=== PATIENT | female | born 1955 | race Caucasian/White ===

== ENCOUNTER 2016-07-24 18:51 | Inpatient (IN) | payer MEDICAID ==
[~2016-07-24] VITALS: Ht 157.5 cm; Wt 70.1 kg
--- NOTE | ~2016-07-24 | CON ---
[facility] 61 Y [address] ROOM: [place] [address] LOCATION: GPCU ADMIT DATE: 07/24/2016 Consultation DISCHARGE DATE: FAMILY PHYSICIAN: PHYSICIAN, UNKNOWN ATTENDING PHYSICIAN: KATE BABIN DATE OF CONSULTATION: 07/24/2016 REFERRING PHYSICIAN: Quinn Reddy MD REFERRING PHYSICIANS: Dr. Babin and Dr. Wilcox. REASON FOR CONSULTATION: Rectal bleeding. HISTORY OF PRESENT ILLNESS: The patient is a pleasant 61-year-old white female with a history of CVA and has significant restrictions in speech. She was transferred from [facility] for evaluation of lower GI bleeding. She apparently developed acute hematochezia. She was admitted for further management. CT scan did show some thickening of the colon, suggestive of colitis. The patient denies any abdominal pain. She denies any prior history of similar problems. She is not a good historian, but says she has never had a colonoscopy done. PAST MEDICAL HISTORY: Significant for nontraumatic subarachnoid hemorrhage. She had clipping done, developed a CVA, and has been on anticoagulation since then. Has a history of urinary tract infection. History of seizures. Has cellulitis in the past. Hyperlipidemia. She has a history of GERD. Anxiety disorder. Again, a very limited history is available. PAST SURGICAL HISTORY: MCA clipping. She has also an IVC filter placed. Family history and other medical history are not reliably available. ALLERGIES: NO KNOWN DRUG ALLERGIES. CURRENT MEDICATIONS: Include: 1. Amantadine. 2. Eliquis. 3. Biofreeze. 4. Clonidine. PATIENT'S NAME: [facility] AGE: 61 Y [address] ROOM: [address] [place] [id number] LOCATION: GPCU ADMIT DATE: 07/24/2016 Consultation DISCHARGE DATE: FAMILY PHYSICIAN: PHYSICIAN, UNKNOWN ATTENDING PHYSICIAN: KATE BABIN 5. Ipratropium. 6. Albuterol sulfate inhaler. 7. Ferrous sulfate. 8. Cyclobenzaprine. 9. Keppra. 10. Citalopram. 11. Atorvastatin. 12. Magnesium hydroxide. 13. MiraLax powder p.r.n. 14. Naproxen. 15. Famotidine. 16. Methylphenidate. 17. Guaifenesin. 18. Senna. 19. Sinemet. 20. Symbicort inhaler. 21. Acetaminophen. 22. Ascorbic acid. 23. Cholecalciferol. REVIEW OF SYSTEMS: Very limited review of system is available. Most information is gleaned from the chart. Unremarkable other than what is mentioned in the Past Medical History and History of Present Illness. PHYSICAL EXAMINATION: GENERAL: Today, she is communicative, but slow to respond, does have some significant speech disorder because of the CVA. VITAL SIGNS: Temperature is 97, pulse is 92 per minute, blood pressure is 172/93, respiratory rate is 20. CHEST: Good air entry bilaterally. She does have a scar from a tracheostomy probably. ABDOMEN: Soft. There is a scar from her old PEG tube. Soft, Nontender. Rest of the exam is extremely limited. LABORATORY DATA: Her labs show procalcitonin of 0.07, sodium 144, potassium 4.0, chloride is 114, bicarb is 20, BUN 12, creatinine 0.3, albumin is 1.8, total bilirubin is 0.2, ALT of 17, AST is 18, alk phos 71, magnesium is 1.7. CBC showed WBC of 9.0, hemoglobin of 8.5, hematocrit 28.6, platelet count of 253. She has had 4 L of fluid for resuscitation. IMPRESSION: PATIENT'S NAME: AVIS FOY [facility] AGE: 61 Y [address] ROOM: [place] [address] LOCATION: [facility] ADMIT DATE: 07/24/2016 Consultation DISCHARGE DATE: FAMILY PHYSICIAN: PHYSICIAN, UNKNOWN ATTENDING PHYSICIAN: KATE BABIN The patient with a history of lower gastrointestinal bleeding. CT scan does suggest some changes of colitis. At this time, she is relatively hemodynamically stable. I would suggest to continue the conservative management. We will watch her hemoglobin. She may be transfused blood prn. The patient will be scheduled for colonoscopy. We will continue to follow this patient along with you. Thank you once again for the courtesy of this consultation. ARIMD FEMI JENNINGS/modl /[id number] d: 07/25/16 0234 t: 07/26/16 1554, CONSULTATION REPORT
--- NOTE | ~2016-07-24 | HP ---
PATIENT'S NAME: SHANNA FOYERIE [facility] AGE: 61 Y [address] ROOM: [place] [address] LOCATION: GPCU ADMIT DATE: 07/24/2016 History & Physical DISCHARGE DATE: FAMILY PHYSICIAN: PHYSICIAN, UNKNOWN ATTENDING PHYSICIAN: KATE BABIN DATE OF SERVICE: CHIEF COMPLAINT: For this admission, bright red blood per rectum. 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 The patient is also on anticoagulation supposedly for a DVT with apixaban. The patient developed bright red blood per rectum and some right-sided abdominal discomfort earlier today. She was evaluated at an outside facility where hemoglobin was observed to be 11. A CAT scan of abdomen and pelvis demonstrated mild rectosigmoid colitis, diverticulosis, and a dense right lower lobe infiltrate. I also appreciate a considerable right-sided constipation. REVIEW OF SYSTEMS: The patient denies any chest pain, shortness of breath, nausea, vomiting, or palpitations. On review of systems, all systems have been reviewed and negative aside pertinent positives mentioned above. PAST MEDICAL HISTORY: 1. Left hemiparesis. 2. Middle cerebral artery aneurysm, status post clipping. 3. History of DVT. 4. Status post IVC filter. 5. Drowsiness/altered level of consciousness, currently on medication regimen with amantadine and Ritalin. 6. Hypertension. SURGICAL HISTORY: As above. SOCIAL HISTORY: Reviewed and the patient has no ongoing toxic habits. FAMILY HISTORY: [facility]GE[facility] 61 Y [address] ROOM: [id number] [place], [place] [address] LOCATION: GPCU ADMIT DATE: 07/24/2016 History & Physical DISCHARGE DATE: FAMILY PHYSICIAN: PHYSICIAN, UNKNOWN ATTENDING PHYSICIAN: KATE BABIN Reviewed and is noncontributory due to known underlying etiology to her presentation. CURRENT MEDICATIONS: 1. Apixaban. 2. Amantadine. 3. Biofreeze as needed. 4. DuoNeb. 5. Ferrous sulfate. 6. Flexeril. 7. Lexapro. 8. Milk of magnesia. 9. MiraLAX. 10. Naprosyn. 11. Pepcid. 12. Ritalin. 13. Robitussin. 14. Sinemet. 15. Symbicort. 16. Tylenol. 17. Vitamin C. 18. Vitamin D. PHYSICAL EXAMINATION: VITAL SIGNS: Blood pressure 170/80, heart rate is in the 90s, saturating 96% on 2 L nasal cannula, respirations 16, and she is afebrile. GENERAL: Appears chronically ill, elderly female, in no acute distress. NEUROLOGIC: Significant for some expressive aphasia as well as dysarthria with left-sided hemiparesis. HEENT: Eye exam shows pupils are equal and reactive to light. LYMPHATIC: No cervical lymphadenopathy. ENDOCRINE: No thyromegaly. LUNGS: Significant for crackles at the left base and diminished breath sounds on the right. HEART: Regular rate and rhythm without appreciable murmurs, gallops, or rubs. There is no lower extremity edema. GI: Abdomen is soft, slightly tender to the right upper quadrant. Normoactive bowel sounds. No rebound tenderness or guarding. : No costovertebral angle tenderness. VASCULAR: 2+ pedal pulses. MUSCULOSKELETAL: No muscle or joint abnormalities. PSYCHIATRIC: Appropriate mood, cognition, and affect. SKIN: Warm and dry. LABORATORY DATA: Studies that are available so far, hemoglobin of 8.5 done here which down from PATIENT'S NAME: AVIS FOY [facility] AGE: 61 Y [address] ROOM: [place] [address] [facility] ADMIT DATE: 07/24/2016 History & Physical DISCHARGE DATE: FAMILY PHYSICIAN: PHYSICIAN, UNKNOWN ATTENDING PHYSICIAN: KATE BABIN 9.3 at the outside hospital. White count is 9.0, platelets of 253, INR is 1.2. A CAT scan as above. ASSESSMENT AND PLAN: This is a 61-year-old female who is being admitted with: 1. Acute blood loss anemia due to gastrointestinal bleed. We will continue trending the patient's hemoglobin. I believe at this point her considerable drop is related to ongoing dilution as she has received 2 L of fluids at the outside facility. We will put her on Protonix and get a GI consultation. Most likely, this is evidence of an ischemic colitis. We will also hold off on her anticoagulation. If hemorrhage continues, we will consider reversing her apixaban though at this point, I believe we will keep monitor her and transfuse as needed. 2. Lower gastrointestinal bleed. This is likely due to ischemic colitis. We will aggressively hydrate the patient. We will get a GI consultation. 3. Pneumonia, likely due to aspiration. The patient has received broad- spectrum coverage with Flagyl, Rocephin, and meropenem at the outside facility. We will continue her on Flagyl and Rocephin, which will cover pneumonia as well as colitis. We will get a Speech and Swallow eval as the patient does admit to occasional choking on food despite being on a pureed diet. 4. History of deep venous thrombosis. The patient does have an IVC filter. 5. Essential hypertension. We will continue the patient on clonidine. 6. DVT prophylaxis will be non-pharmacologic for the time being as the patient is at this point fully anticoagulated. 7. Suspected Parkinson's based on her med regimen. We will continue her on her current medications. 8. Additional management will depend on clinical course. Time dedicated to this patient's encounter is 35 minutes. MD TESFAYE FRANCO/pat /[id number] D: 027 T: HISTORY & PHYSICAL
--- NOTE | ~2016-07-24 | DS ---
PATIENT'S NAME: AVIS FOY [facility] AGE: 61 Y [address] ROOM: [address] [address] LOCATION: GPCU ADMIT DATE: 07/24/2016 Discharge Summary DISCHARGE DATE: 07/29/2016 FAMILY PHYSICIAN: Physician, Unknown ATTENDING PHYSICIAN: Harjit Vivar DISCHARGE DIAGNOSES: 1. Lower gastrointestinal bleed. 2. Acute hypoxic respiratory failure. 3. Aspiration pneumonia. 4. Hypokalemia. 5. Anemia secondary to lower gastrointestinal bleed. 6. History of intracerebral hemorrhage with secondary left hemiplegia. PROCEDURES: Lower GI endoscopy REASON FOR ADMISSION: The patient was hypoxic and bleeding from the rectum. LABORATORY DATA: Hematology shows normal white count and platelets. Her hemoglobin is 8.8, which is fairly stable, she was up to a max of 9.4. No active bleeding at this time. Chemistries: Potassium down at 3.4. Albumin is low and calcium secondarily decreased. Liver function tests are all normal. GFR greater than 60. X-ray yesterday showed pneumonia persists. She has lower lung opacity, most prominent in the right base, unchanged from her first x-ray here. Abdominal film is normal except does show an IVC in place. HOSPITAL COURSE: Her oxygenation improved, still has somewhat of a tight cough, but her lungs are more clear. She is intermittently a little moist on auscultation, but improving. Note that during the hospitalization, lower GI endoscopy was abandoned because of the poor prep. We do not have a focus of bleeding. The decision has been made to keep her off long-term anticoagulation since she has a filter in the vena cava that may or may not be what she needs extermination inspector, but that decision will be left to her primary doctor. She will be discharged on medications per nursing med recon. I will just leave her on a high dose of amoxicillin for another week as the chest x-ray is still showing pneumonia. We will leave her on respiratory treatments. Diet will be pureed food and thickened liquids as she has history of an abnormal swallowing test. Activity will be per PT and her caregivers. She was unable to walk at this time. Followup will be scheduled with her primary care doctor in 2 weeks. PATIENT'S NAME: AVIS FOY [facility] AGE: 61 Y [address] ROOM: [id number] [place], [place] [address] LOCATION: GPCU ADMIT DATE: 07/24/2016 Discharge Summary DISCHARGE DATE: 07/29/2016 FAMILY PHYSICIAN: Jessie Gunter ATTENDING PHYSICIAN: Harjit Vivar Note that discharge preparations took 35 minutes this morning. MD ELIZABET WARNER/modl /[id number] d: 07/30/16 0306 t: 07/30/16 1525, DISCHARGE SUMMARY
[2016-07-24 20:22] LABS: BASOPHIL % 0.2 %; EOSINOPHIL # 0.5 K/uL (0.0-0.5); EOSINOPHIL % 5.7 %; HEMATOCRIT 28.6 % (33.0-46.0); HEMOGLOBIN 8.5 g/dL (10.0-15.0); IMMATURE GRANULOCYTE # 0.1 K/uL (0.0-0.3); IMMATURE GRANULOCYTE % 0.8 %; LYMPHOCYTE # 1.2 K/uL (0.8-4.0); LYMPHOCYTE % 12.8 %; MCH 25.6 pg (27.0-34.0); MCHC 29.7 gm/dL (32.0-36.5); MCV 86.1 fl (83.0-98.0); MONOCYTE # 0.4 K/uL (0.0-1.0); MONOCYTE % 4.2 %; NEUTROPHIL # (ANC) 6.9 K/uL (1.8-7.8); NEUTROPHIL % 76.3 %; NRBC % 0 /100WBC (0-0.00); PLATELET COUNT 253 K/uL (150-450); RBC 3.32 M/uL (3.50-5.50); RDW-CV 15.7 % (11.9-14.6)
[2016-07-24 20:27] LABS: INR - (THERAPEUTIC) 1.2 (0.9-1.1)
[2016-07-24 20:43] LABS: ALK PHOS 71 IU/L (33-138); ALT 17 IU/L (12-78); AST 18 IU/L (10-40); BLOOD UREA NITROGEN 12 mg/dL (6-24); CHLORIDE 114 mMol/L (96-110); CO2 20 mMol/L (22-32); CREATININE 0.3 mg/dL (0.5-1.1); ESTIMATED GFR (MDRD EQUATION) > 60; MAGNESIUM 1.7 mg/dL (1.3-2.6); SODIUM 144 mMol/L (135-145); TOTAL BILIRUBIN 0.2 mg/dL (0.0-1.5)
[2016-07-24 20:53] LABS: ALBUMIN 1.8 gm/dL (3.5-5.0); CALCIUM 6.7 mg/dL (8.5-10.5); TOTAL PROTEIN 4.7 g/dL (6.0-8.4)
[2016-07-24] MEDS ORDERED: SYMMETREL 100M100 MG PO (21:47)
[2016-07-24] MEDS ORDERED: ELIQUIS5 MG PO (21:48)
[2016-07-24] MEDS ORDERED: CATAPRES0.1 MG PO (21:53)
[2016-07-24] MEDS ORDERED: BIOFREEZE89 ML TOP (21:53)
[2016-07-24] MEDS ORDERED: FEOSOL325 MG PO (21:55)
[2016-07-24] MEDS ORDERED: DUONEB INH (21:55)
[2016-07-24] MEDS ORDERED: FLEXERIL10 MG PO (21:56)
[2016-07-24] MEDS ORDERED: KEPPRA500 MG PO (21:58)
[2016-07-24] MEDS ORDERED: LEXAPRO20 MG PO (21:59)
[2016-07-24] MEDS ORDERED: LIPITOR40 MG PO (22:00)
[2016-07-24] MEDS ORDERED: MILK OF MA400 MG/5 M PO (22:00)
[2016-07-24] MEDS ORDERED: MIRALAX17 GM PO (22:01)
[2016-07-24] MEDS ORDERED: PEPCID20 MG PO (22:02)
[2016-07-24] MEDS ORDERED: NAPROSYN500 MG PO (22:02)
[2016-07-24] MEDS ORDERED: RITALIN 10MG10 MG PO (22:05)
[2016-07-24] MEDS ORDERED: RITALIN 5MG5 MG PO (22:07)
[2016-07-24] MEDS ORDERED: ROBITUSSIN100 MG/5 M PO (22:09)
[2016-07-24] MEDS ORDERED: SENNA8.6 MG PO (22:10)
[2016-07-24] MEDS ORDERED: SINEMET 25-1001 EACH PO (22:19)
[2016-07-24] MEDS ORDERED: SYMBICORT 16010.2 GM INH (22:20)
[2016-07-24] MEDS ORDERED: TYLENOL325 MG PO (22:21)
[2016-07-24] MEDS ORDERED: VITAMIN C250 MG PO (22:23)
[2016-07-24] MEDS ORDERED: VITAMIN D1000 UNIT PO (22:23)
--- NOTE | 2016-07-25 04:41 | NUR ---
Significant Event: Arrived to floor and during transfer had large BM full of bloody stool and significant clots. CT showed possible colitis and ischemic bowels. Follow up: A&Ox2. Pt has hx of CVA with aphasia and flaccidity on L side. Pt currently NPO with [facility] [employer] consult in. Do not give any PO meds. Currently no VTE ordered. GI consult in and Dr. Reddy has seen. Currently getting CBC q8h. 2 units of PRBC on hold in blood bank if needed. Did receive 4L bolus of fluids prior to arrival in ED. Continue IVF of NS @ 100.
[2016-07-25 04:55] LABS: BASOPHIL % 0.2 %; EOSINOPHIL # 0.5 K/uL (0.0-0.5); EOSINOPHIL % 3.9 %; HEMATOCRIT 29.4 % (33.0-46.0); HEMOGLOBIN 8.7 g/dL (10.0-15.0); IMMATURE GRANULOCYTE # 0.1 K/uL (0.0-0.3); IMMATURE GRANULOCYTE % 0.4 %; LYMPHOCYTE % 8.2 %; MCH 25.3 pg (27.0-34.0); MCHC 29.6 gm/dL (32.0-36.5); MCV 85.5 fl (83.0-98.0); MONOCYTE # 0.7 K/uL (0.0-1.0); MONOCYTE % 5.5 %; MPV 11.2 fl (9.4-12.4); NEUTROPHIL # (ANC) 10.4 K/uL (1.8-7.8); NEUTROPHIL % 81.8 %; NRBC % 0 /100WBC (0-0.00); PLATELET COUNT 255 K/uL (150-450); RBC 3.44 M/uL (3.50-5.50); RDW-CV 15.6 % (11.9-14.6); WBC 12.7 K/uL (4.0-11.0)
[2016-07-25 11:45] LABS: BASOPHIL % 0.2 %; EOSINOPHIL # 0.6 K/uL (0.0-0.5); EOSINOPHIL % 5.2 %; HEMATOCRIT 27.7 % (33.0-46.0); HEMOGLOBIN 8.5 g/dL (10.0-15.0); IMMATURE GRANULOCYTE # 0.1 K/uL (0.0-0.3); IMMATURE GRANULOCYTE % 0.6 %; LYMPHOCYTE # 1.1 K/uL (0.8-4.0); LYMPHOCYTE % 10.4 %; MCH 25.8 pg (27.0-34.0); MCHC 30.7 gm/dL (32.0-36.5); MCV 83.9 fl (83.0-98.0); MONOCYTE # 0.7 K/uL (0.0-1.0); MPV 10.6 fl (9.4-12.4); NEUTROPHIL # (ANC) 8.4 K/uL (1.8-7.8); NEUTROPHIL % 77.6 %; NRBC % 0 /100WBC (0-0.00); PLATELET COUNT 246 K/uL (150-450); RDW-CV 15.5 % (11.9-14.6); WBC 10.8 K/uL (4.0-11.0)
--- NOTE | 2016-07-25 15:19 | NUR ---
Significant Event: Alert and disorieted to place at times. L) side flaccid with facial droop from old CVA. L) AFA infusing NS at 100ml/hr. SBP-89-130. P-80-90s. Afebrile. 1-2L NC with saturations in low to mid 90s. Speech evaled patient and recommended puree diet, nectar thick liquids, and pills crushed with apple sauce. Patient is clear liquids after 1800 and NPO at 0400 tomorrow morning for sigmoidoscopy tomorrow in the AM. Total lift with Q2hr Turns. Incontinent of urine/stool. No bloody BM this shift. Last HBG 8.5, next to be drawn at 2000.
[2016-07-25 20:19] LABS: BASOPHIL % 0.3 %; EOSINOPHIL # 0.6 K/uL (0.0-0.5); EOSINOPHIL % 5.4 %; HEMATOCRIT 26.9 % (33.0-46.0); HEMOGLOBIN 8.2 g/dL (10.0-15.0); IMMATURE GRANULOCYTE % 0.4 %; LYMPHOCYTE # 1.1 K/uL (0.8-4.0); LYMPHOCYTE % 9.8 %; MCH 25.7 pg (27.0-34.0); MCHC 30.5 gm/dL (32.0-36.5); MCV 84.3 fl (83.0-98.0); MONOCYTE # 0.6 K/uL (0.0-1.0); MONOCYTE % 5.2 %; MPV 11.3 fl (9.4-12.4); NEUTROPHIL # (ANC) 8.9 K/uL (1.8-7.8); NEUTROPHIL % 78.9 %; NRBC % 0 /100WBC (0-0.00); PLATELET COUNT 268 K/uL (150-450); RBC 3.19 M/uL (3.50-5.50); RDW-CV 15.5 % (11.9-14.6); WBC 11.3 K/uL (4.0-11.0)
[2016-07-26 04:10] LABS: BASOPHIL % 0.3 %; EOSINOPHIL # 0.7 K/uL (0.0-0.5); EOSINOPHIL % 6.4 %; HEMATOCRIT 26.8 % (33.0-46.0); HEMOGLOBIN 8.2 g/dL (10.0-15.0); IMMATURE GRANULOCYTE % 0.3 %; LYMPHOCYTE # 1.4 K/uL (0.8-4.0); LYMPHOCYTE % 13.5 %; MCH 25.9 pg (27.0-34.0); MCHC 30.6 gm/dL (32.0-36.5); MCV 84.5 fl (83.0-98.0); MONOCYTE # 0.6 K/uL (0.0-1.0); MPV 11.1 fl (9.4-12.4); NEUTROPHIL # (ANC) 7.5 K/uL (1.8-7.8); NEUTROPHIL % 73.5 %; NRBC % 0 /100WBC (0-0.00); PLATELET COUNT 266 K/uL (150-450); RBC 3.17 M/uL (3.50-5.50); RDW-CV 15.6 % (11.9-14.6); WBC 10.3 K/uL (4.0-11.0)
[2016-07-26 04:27] LABS: ALK PHOS 75 IU/L (33-138); ANION GAP 12.2 (10.0-19.0); AST 18 IU/L (10-40); CALCIUM 7.9 mg/dL (8.5-10.5); CHLORIDE 109 mMol/L (96-110); CO2 23 mMol/L (22-32); CREATININE 0.3 mg/dL (0.5-1.1); ESTIMATED GFR (MDRD EQUATION) > 60; POTASSIUM 3.2 mMol/L (3.7-5.1); SODIUM 141 mMol/L (135-145); TOTAL PROTEIN 5.3 g/dL (6.0-8.4)
[2016-07-26 04:28] LABS: ALBUMIN 1.9 gm/dL (3.5-5.0); ALT < 10 IU/L (12-78); BLOOD UREA NITROGEN 3 mg/dL (6-24); TOTAL BILIRUBIN 0.4 mg/dL (0.0-1.5)
--- NOTE | 2016-07-26 05:08 | NUR ---
Significant event: Patient alert to self and time but forgetful to place. left side is flaccid from old cva. Speech is slow and garbeled. Turn every 2 hours and as needed. Inc of bladder. No stools duirng shift. Plan to have a flex sigmoidoscopy this am, npo since 0400. Tap water enema's this morning at 7 and 8. Takes pills crushed in pudding.
--- NOTE | 2016-07-26 11:01 | NUR ---
D:Patient had tap water enema at 0700. Patient isn't able to retain much fluid. Return was clear to red tinged. Repeated enema at 0800, return was darker red and there was 6 small clots that returned with. Did give approx. 150-200 ml water with each enema and unable to retain any of it.
--- NOTE | 2016-07-26 11:06 | NUR ---
D:Patient left per cart for Endo at 0930.
[2016-07-26 12:18] LABS: BASOPHIL % 0.2 %; EOSINOPHIL # 0.6 K/uL (0.0-0.5); EOSINOPHIL % 3.4 %; HEMATOCRIT 28.5 % (33.0-46.0); HEMOGLOBIN 8.7 g/dL (10.0-15.0); IMMATURE GRANULOCYTE # 0.1 K/uL (0.0-0.3); IMMATURE GRANULOCYTE % 0.5 %; LYMPHOCYTE # 1.2 K/uL (0.8-4.0); LYMPHOCYTE % 6.6 %; MCH 25.9 pg (27.0-34.0); MCHC 30.5 gm/dL (32.0-36.5); MCV 84.8 fl (83.0-98.0); MONOCYTE # 0.8 K/uL (0.0-1.0); MONOCYTE % 4.3 %; MPV 10.9 fl (9.4-12.4); NEUTROPHIL # (ANC) 14.8 K/uL (1.8-7.8); NRBC % 0 /100WBC (0-0.00); PLATELET COUNT 280 K/uL (150-450); RBC 3.36 M/uL (3.50-5.50); RDW-CV 15.6 % (11.9-14.6)
[2016-07-26 12:20] LABS: WBC 17.4 K/uL (4.0-11.0)
--- NOTE | 2016-07-26 15:50 | NUR ---
D:Patient returned from PACU per cart at 1120. They were unable to flexible sigmoidoscopy d/t stool and clots in the way. The enemas didn't do a good prep. Orders given for PO laxatives today. Patient is alert, no changes noted to assessment.
--- NOTE | 2016-07-26 17:31 | NUR ---
Significant Event:Patient was to have flexible sigmoidoscopy this am, had two enemas, unable to retain any water. Unable to do scope. Patient had 6 Dulcolax and a bottle of mag citrate when back to floor. Has been incont of large amounts of urine. Small stools twice. Patient on clear liquids thickened. Has moist cough. Started on Mucinex today, Got KCl 40 mEq IV and 2 gm Mg IV. Also got SoluMedrol today. Hgb at 1240 today 8.7, has been holding that range. Follow up:Colonoscopy tomorrow, and needs enema at 0600.
[2016-07-26 19:40] LABS: HEMATOCRIT 29.8 % (33.0-46.0); HEMOGLOBIN 9.2 g/dL (10.0-15.0); MCH 25.5 pg (27.0-34.0); MCHC 30.9 gm/dL (32.0-36.5); MCV 82.5 fl (83.0-98.0); MPV 11.7 fl (9.4-12.4); PLATELET COUNT 287 K/uL (150-450); RBC 3.61 M/uL (3.50-5.50); RDW-CV 15.5 % (11.9-14.6); WBC 12.5 K/uL (4.0-11.0)
[2016-07-26 20:46] LABS: BANDED NEUTROPHIL # 0.1 K/uL (0.0-0.1); BANDED NEUTROPHILS % 1 %; LYMPHOCYTE # 0.4 K/uL (0.8-4.0); LYMPHOCYTE % 3 %; MONOCYTE # 0.1 K/uL (0.0-1.0); SEGMENTED NEUTROPHIL # 11.9 K/uL (1.8-7.8); SEGMENTED NEUTROPHIL % 95 %
[2016-07-27 04:06] LABS: BASOPHIL % 0.1 %; HEMATOCRIT 28.5 % (33.0-46.0); HEMOGLOBIN 8.7 g/dL (10.0-15.0); IMMATURE GRANULOCYTE % 0.5 %; LYMPHOCYTE # 0.7 K/uL (0.8-4.0); LYMPHOCYTE % 8.9 %; MCH 25.3 pg (27.0-34.0); MCHC 30.5 gm/dL (32.0-36.5); MCV 82.8 fl (83.0-98.0); MONOCYTE # 0.2 K/uL (0.0-1.0); MPV 11.5 fl (9.4-12.4); NEUTROPHIL # (ANC) 6.8 K/uL (1.8-7.8); NEUTROPHIL % 87.5 %; NRBC % 0 /100WBC (0-0.00); PLATELET COUNT 284 K/uL (150-450); RBC 3.44 M/uL (3.50-5.50); RDW-CV 15.8 % (11.9-14.6); WBC 7.8 K/uL (4.0-11.0)
[2016-07-27 04:27] LABS: ANION GAP 12.8 (10.0-19.0); BLOOD UREA NITROGEN 3 mg/dL (6-24); CALCIUM 7.8 mg/dL (8.5-10.5); CHLORIDE 105 mMol/L (96-110); CO2 23 mMol/L (22-32); CREATININE 0.3 mg/dL (0.5-1.1); ESTIMATED GFR (MDRD EQUATION) > 60; MAGNESIUM 2.4 mg/dL (1.3-2.6); POTASSIUM 3.8 mMol/L (3.7-5.1); SODIUM 137 mMol/L (135-145)
[2016-07-27 04:33] LABS: PHOSPHORUS 1.6 mg/dL (2.5-4.9)
--- NOTE | 2016-07-27 04:59 | NUR ---
Significant Event: DISORIENTED TO PLACE. FORGETFUL. ANSWERS YES OR NO TO QUESTIONS. TURNED Q 2 HRS SIDE TO SIDE WITH WEDGE. AFEBRILE. VSS ON 1L. DENIES PAIN. IV TO R) FA WITH NS @ 50 ML/H. NPO SINCE MIDNIGHT FOR COLONOSCOPY THIS AM. PERMITS NEED SIGNED. CALLED AND LEFT VOICEMAIL BUT NO CALL BACK. INCONTINENT OF BLADDER AND BOWEL.HAD ONE LARGE BM THIS SHIFT. ENEMA AT 0600. Follow up: CONTINUE WITH PLAN OF CARE. GIVE ENEMA AT 0600.
[2016-07-27 11:43] LABS: BASOPHIL % 0.1 %; EOSINOPHIL # 0.1 K/uL (0.0-0.5); EOSINOPHIL % 0.5 %; HEMOGLOBIN 9.4 g/dL (10.0-15.0); IMMATURE GRANULOCYTE # 0.1 K/uL (0.0-0.3); IMMATURE GRANULOCYTE % 0.4 %; LYMPHOCYTE # 1.5 K/uL (0.8-4.0); LYMPHOCYTE % 10.1 %; MCH 25.9 pg (27.0-34.0); MCHC 31.3 gm/dL (32.0-36.5); MCV 82.6 fl (83.0-98.0); MONOCYTE # 0.8 K/uL (0.0-1.0); MONOCYTE % 5.1 %; MPV 10.8 fl (9.4-12.4); NEUTROPHIL # (ANC) 12.7 K/uL (1.8-7.8); NEUTROPHIL % 83.8 %; NRBC % 0 /100WBC (0-0.00); PLATELET COUNT 340 K/uL (150-450); RBC 3.63 M/uL (3.50-5.50); RDW-CV 15.9 % (11.9-14.6); WBC 15.2 K/uL (4.0-11.0)
--- NOTE | 2016-07-27 12:30 | NUR ---
Attempted to see patient and off the unit. Per review of chart and demographics, patient lives at [facility] in [place]. Will follow.
--- NOTE | 2016-07-27 16:55 | NUR ---
Significant event: Patient is A/O x3, at times is disoriented to place. Quiet and hoarse, but can answer simple questions. Has flaccid L) side. Full lift. Had two tap water enemas and mag citrate this morning. Had sigmoidoscopy that showed no signs of bleeding this morning. Has been incontinent of large amounts of urine and stool. Patient on pureed diet with nectar thick liquids. Was NPO this morning and has not ate much since. Takes pills crushed with pudding. Can transfer to [facility] if beds are needed. Follow up: Continue with plan of care.
[2016-07-27 20:30] LABS: BASOPHIL % 0.2 %; EOSINOPHIL # 0.4 K/uL (0.0-0.5); EOSINOPHIL % 2.7 %; HEMATOCRIT 30.1 % (33.0-46.0); HEMOGLOBIN 9.4 g/dL (10.0-15.0); IMMATURE GRANULOCYTE # 0.1 K/uL (0.0-0.3); IMMATURE GRANULOCYTE % 0.4 %; LYMPHOCYTE # 1.6 K/uL (0.8-4.0); LYMPHOCYTE % 11.2 %; MCH 25.7 pg (27.0-34.0); MCHC 31.2 gm/dL (32.0-36.5); MCV 82.2 fl (83.0-98.0); MONOCYTE # 0.7 K/uL (0.0-1.0); MONOCYTE % 5.1 %; MPV 10.8 fl (9.4-12.4); NEUTROPHIL # (ANC) 11.3 K/uL (1.8-7.8); NEUTROPHIL % 80.4 %; NRBC % 0 /100WBC (0-0.00); PLATELET COUNT 325 K/uL (150-450); RBC 3.66 M/uL (3.50-5.50); RDW-CV 15.9 % (11.9-14.6); WBC 14.1 K/uL (4.0-11.0)
[2016-07-28 04:02] LABS: BASOPHIL % 0.3 %; EOSINOPHIL # 0.4 K/uL (0.0-0.5); EOSINOPHIL % 3.6 %; HEMATOCRIT 28.6 % (33.0-46.0); HEMOGLOBIN 8.8 g/dL (10.0-15.0); IMMATURE GRANULOCYTE % 0.4 %; LYMPHOCYTE # 1.7 K/uL (0.8-4.0); LYMPHOCYTE % 16.8 %; MCH 25.7 pg (27.0-34.0); MCHC 30.8 gm/dL (32.0-36.5); MCV 83.4 fl (83.0-98.0); MONOCYTE # 0.6 K/uL (0.0-1.0); MPV 11.4 fl (9.4-12.4); NEUTROPHIL # (ANC) 7.2 K/uL (1.8-7.8); NEUTROPHIL % 72.9 %; NRBC % 0 /100WBC (0-0.00); PLATELET COUNT 305 K/uL (150-450); RBC 3.43 M/uL (3.50-5.50); RDW-CV 15.9 % (11.9-14.6); WBC 9.9 K/uL (4.0-11.0)
[2016-07-28 04:13] LABS: ANION GAP 10.4 (10.0-19.0); BLOOD UREA NITROGEN 3 mg/dL (6-24); CALCIUM 7.6 mg/dL (8.5-10.5); CHLORIDE 109 mMol/L (96-110); CO2 25 mMol/L (22-32); CREATININE 0.4 mg/dL (0.5-1.1); ESTIMATED GFR (MDRD EQUATION) > 60; POTASSIUM 3.4 mMol/L (3.7-5.1); SODIUM 141 mMol/L (135-145)
--- NOTE | 2016-07-28 04:56 | NUR ---
Significant Event: DISORIENTED TO PLACE. FORGETFUL. UP IN CHAIR BEGINNING OF SHIFT. RESTING IN BED. TURNED Q 2 HRS SIDE TO SIDE. AFEBRILE. VSS ON RA. DENIES PAIN. IV TO R) FA SL. CONTINUE WITH IV ANTIBITOICS. UP TO SEE PATIENT TONIGHT. INCONTINENT OF URINE AND STOOL THIS SHIFT. Follow up: CONTINUE WITH PLAN OF CARE.
--- NOTE | 2016-07-28 13:45 | NUR ---
Call from the D.O.N. at [facility] and updated her. Told her anticipate patient will be ready for discharge tomorrow. Will fax update to [facility]. Will follow.
--- NOTE | 2016-07-28 17:06 | NUR ---
Significant Event: Patient has been A/O x3 today, has been disoriented to place in the last couple of days. Forgetful. Q2 zaragoza. Full lift, was able to pivot transfer to chair today with PT. Chest x-ray today showed no significant change in opacity at R) lung base from 07/26/16. Is being treated for aspiration pneumonia. VSS on room air. O2 sats in low 90s. IV to R) forearm SL. Is incontinent of urine and stool. Is on pureed diet with nectar thick liquids. Takes pills crushed with pudding. Follow up: Continue with plan of care. Continue with antibiotics. Start potassium tonight. Plan is back to [facility] tomorrow.
--- NOTE | 2016-07-28 17:41 | NUR ---
I HAVE READ AND AGREE WITH CHARTING BY CYNTHIA STUDENT NURSE.
--- NOTE | 2016-07-29 05:32 | NUR ---
Significant Event: A&Ox2, Disoriented to time and occasionally place. VSS on room air. Lung sounds course and diminished. IV ABX into right forearm IV with no complications. Total lift/2PA. Q2hr repositioning. INC of bladder and bowel. Refusing meals, needs help with feedings. Pureed diet, nectar thick liquids, HOB up. Crushed meds in Chocolate pudding. Follow up: D/C to correction in [facility].
--- NOTE | 2016-07-29 11:30 | NUR ---
Patient has orders to return to [facility] today. Spoke with Malvin at [facility] in [place]. They will pick patient up at 1400. Nurse will call nurse to nurse report. Orders faxed to [facility]. Left VMM for patient's spouse/POA regarding return to [place] today. Patient transferring back to [facility] in [place] for skilled care via [facility] van today at 1400.
--- NOTE | 2016-07-29 12:35 | NUR ---
D:Patient is alert, oreintated to person and time. Is cooperative, responsive to questions. Coccyx is slightly reddened. Has an abraision to left arm that is dry and healing. Continues to be incont of bowel and bladder. Had liquid BM this morning. Is on nectar thick liquids and pureed diet. Does has moist cough, at times productive. Is cooperative. Needs to be fed. Appeitite fair. Breath sounds remain slightly coarse, clears with coughing. Is on room air. P:Return to [facility] today. Did talk to Lisa at [facility] this morning, will call report before patient leaves.
--- NOTE | 2016-07-29 14:46 | NUR ---
D:Patient is being discharged back to [facility]. Is alert, is aware of it. IV dc'd with catheter intact. Off monitor. Report called to Lisa at [facility] at 1405. Patient discharged per wheelchair to return to [facility] with personal belongings. 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 Transfer packet given to otr tanker truck driver.
== END 2016-07-29 14:30 | DRG 377 ==
LOC: GMED 18:51 → GPCU 19:41
PROVIDERS: Internal Medicine; ADMIT Internal Medicine
PROC: 0DJD8ZZ Inspection of Lower Intestinal Tract, Via Natural or Artificial Opening Endoscopic (ICD-10-PCS; 2016-07-26)
PROC: 0DJD8ZZ Inspection of Lower Intestinal Tract, Via Natural or Artificial Opening Endoscopic (ICD-10-PCS; principal; 2016-07-27)
DX: K57.31 Diverticulosis of large intestine without perforation or abscess with bleeding (principal); J69.0 Pneumonitis due to inhalation of food and vomit; J96.01 Acute respiratory failure with hypoxia; K55.9 Vascular disorder of intestine, unspecified; D62 Acute posthemorrhagic anemia; G81.94 Hemiplegia, unspecified affecting left nondominant side; G20 Parkinson's disease; Z86.718 Personal history of other venous thrombosis and embolism; Z79.01 Long term (current) use of anticoagulants; I10 Essential (primary) hypertension; K21.9 Gastro-esophageal reflux disease without esophagitis; Z23 Encounter for immunization; E87.6 Hypokalemia
CPT/HCPCS: J0696; J1610; J2405; J2920; J3475; J3480; J7030; J7040; J7050